=== PATIENT | male | born 1965 | race Caucasian/White ===

== ENCOUNTER 2021-07-27 19:33 | Emergency (ER) | payer OTHER ==
[2021-07-27 22:12] LABS: SARS-COV-2 RT PCR NEGATIVE (NEGATIVE)
--- NOTE | 2021-07-28 00:11 | ER ---
Nurse's Notes [facility] Name: Tony Keen Age: 56 yrs Sex: Male : 1965 Arrival Date: 07/27/2021 Time: 19:42 Bed 18 Private MD: Diagnosis: Acute bronchitis, unspecified Presentation: 07/27 20:54 Chief complaint: Patient states: I have chest congestion real bad, I've been coughing vc1 and my nose has been running. Coronavirus screen: Vaccine status: Patient reports receiving the 2nd dose of the covid vaccine. 1st 2 doses pfizer booster was moderna congestion, cough unrelated to allergies, shortness of breath, Client presents with at least one sign or symptom that may indicate coronavirus-19. Standard/surgical mask placed on the client. Ebola Screen: No symptoms or risks identified at this time. Initial Sepsis Screen: Does the patient meet any 2 criteria? Yes Does the patient have a suspected source of infection? No. Patient's initial sepsis screen is negative. Risk Assessment: Do you want to hurt yourself or someone else? Patient reports no desire to harm self or others. Onset of symptoms was July 23, 2021. 20:54 Method Of Arrival: Ambulatory vc1 20:54 Acuity: SETH 4 vc1 Triage Assessment: 20:57 General: Appears in no apparent distress. Behavior is calm, cooperative, appropriate vc1 for age. Pain: Denies pain. EENT: Reports nasal congestion nasal discharge. Cardiovascular: No deficits noted. Respiratory: Reports shortness of breath Airway is patent Respiratory effort is even, unlabored, Respiratory pattern is regular, symmetrical. Historical: - Allergies: 20:57 No Known Allergies; vc1 - PMHx: 20:57 Diabetes mellitus; Hypertensive disorder; vc1 - Immunization history:: Adult Immunizations up to date. - Social history:: Smoking status: Patient denies any tobacco usage or history of. Screenin:34 Abuse screen: Denies threats or abuse. Denies injuries from another. Nutritional kd3 screening: No deficits noted. Tuberculosis screening: No symptoms or risk factors identified. Fall Risk None identified. Assessment: 22:32 Reassessment: Patient and/or family updated on plan of care and expected duration. Pain kd3 level reassessed. Patient is alert, oriented x 3, equal unlabored respirations, skin warm/dry/pink. Respiratory: Airway is patent Respiratory effort is even, unlabored, Breath sounds are clear bilaterally. GI: No deficits noted. Patient currently denies diarrhea. Vital Signs: 20:54 BP 157 / 88; Pulse 78; Resp 16; Temp 98; Weight 99.79 kg; Height 5 ft. 6 in. (167.64 vc1 cm); Pain 0/10; 22:33 BP 161 / 94; Pulse 82; Resp 17; Temp 97.5; Pulse Ox 100% on R/A; kd3 07/28 00:22 BP 151 / 74; Pulse 82; Resp 17; Temp 98.2; Pulse Ox 100% ; kd3 07/27 20:54 Body Mass Index 35.51 (99.79 kg, 167.64 cm) vc1 ED Course: 07/27 19:42 Patient arrived in ED. wm 20:39 Edwin Hensley PA is PHCP. cp 20:39 Liban Moscoso MD is Attending Physician. cp 20:57 Triage completed. vc1 20:59 Arm band placed on left wrist. vc1 22:28 Huma Zheng, RN is Primary Nurse. kd3 22:34 Patient has correct armband on for positive identification. Bed in low position. Call kd3 light in reach. Side rails up X2. 23:22 COVID-19/FLU A+B (Document "Date of Onset" if Symptomatic) Sent. kd3 23:26 XRAY Chest Pa And Lat (2 Views) In Process Unspecified. EDMS 07/28 00:21 No provider procedures requiring assistance completed. Patient did not have IV access kd3 during this emergency room visit. Administered Medications: No medications were administered Outcome: 00:10 Discharge ordered by MD. cp 00:21 Discharged to home ambulatory. kd3 00:21 Condition: stable 00:21 Discharge instructions given to patient, Instructed on discharge instructions, follow up and referral plans. medication usage, Demonstrated understanding of instructions, follow-up care, medications, Prescriptions given X 3. 00:22 Patient left the ED. kd3 Signatures: Dispatcher [employer] EDMS Edwin Hensley PA PA cp Marsh, Wendy Huma Zheng RN RN kd3 Nidhi Leigh RN RN vc1
--- NOTE | 2021-07-28 00:11 | EDPHYS ---
Physician Documentation [facility] Name: Tony Keen Age: 56 yrs Sex: Male : 1965 Arrival Date: 07/27/2021 Time: 19:42 Bed 18 Private MD: ED Physician Liban Moscoso HPI: 07/27 22:55 This 56 yrs old Male presents to ER via Ambulatory with complaints of Chest Congestion, cp Cough. 22:55 The patient or guardian reports cough, that is intermittent. cp 22:55 Onset: The symptoms/episode began/occurred 4 day(s) ago. Associated signs and symptoms: cp Pertinent positives: rhinorrhea, chest congestion, Pertinent negatives: chest pain, fever, sore throat, vomiting. Severity of symptoms: in the emergency department the symptoms are unchanged despite home interventions. Historical: - Allergies: 20:57 No Known Allergies; vc1 - PMHx: 20:57 Diabetes mellitus; Hypertensive disorder; vc1 - Immunization history:: Adult Immunizations up to date. - Social history:: Smoking status: Patient denies any tobacco usage or history of. ROS: 23:00 Constitutional: Negative for body aches, chills, fever, poor PO intake. cp 23:00 Eyes: Negative for injury, pain, redness, and discharge. cp 23:00 ENT: Negative for drainage from ear(s), ear pain, sore throat, difficulty swallowing, difficulty handling secretions. 23:00 Neck: Negative for pain with movement, pain at rest, stiffness. 23:00 Cardiovascular: Negative for chest pain, edema, palpitations. 23:00 Respiratory: Positive for cough, "sounds productive", chest congestion, Negative for shortness of breath, wheezing. 23:00 Abdomen/GI: Negative for abdominal pain, nausea, vomiting, and diarrhea. 23:00 Neuro: Negative for altered mental status, headache, weakness. 23:00 All other systems are negative. Exam: 23:05 Constitutional: The patient appears in no acute distress, alert, awake, cp non-diaphoretic, non-toxic, well developed, well nourished. 23:05 Head/Face: Normocephalic, atraumatic. cp 23:05 Eyes: Periorbital structures: appear normal, Conjunctiva: normal, no exudate, no injection, Lids and lashes: appear normal, bilaterally. 23:05 ENT: External ear(s): are unremarkable, Ear canal(s): are normal, clear, TM's: bulging, is not appreciated, bilaterally, dullness, bilaterally, erythema, is not appreciated, bilaterally, Nose: is normal, Mouth: Lips: moist, Oral mucosa: pink and intact, moist, Posterior pharynx: Airway: no evidence of obstruction, patent, Tonsils: no enlargement, no erythema, no exudate, erythema, is not appreciated, exudate, is not appreciated. 23:05 Neck: ROM/movement: is normal, is supple, without pain, no range of motions limitations, no meningismus, no nuchal rigidity, Lymph nodes: no appreciated lymphadenopathy. 23:05 Chest/axilla: Inspection: normal. 23:05 Cardiovascular: Rate: normal, Rhythm: regular, Edema: is not appreciated, JVD: is not appreciated. 23:05 Respiratory: the patient does not display signs of respiratory distress, Respirations: normal, no use of accessory muscles, no retractions, labored breathing, is not present, Breath sounds: decreased breath sounds, are not appreciated, stridor, is not appreciated, + upper airway congestion. wheezing: is not appreciated. 23:05 Abdomen/GI: Exam negative for discomfort, distension, guarding, Inspection: abdomen appears normal. 23:05 Back: pain, is absent, ROM is normal. 23:05 Neuro: Orientation: to person, place \\T\\ time. Mentation: is normal, Motor: moves all fours, strength is normal, Sensation: is normal. Vital Signs: 20:54 BP 157 / 88; Pulse 78; Resp 16; Temp 98; Weight 99.79 kg; Height 5 ft. 6 in. (167.64 vc1 cm); Pain 0/10; 22:33 BP 161 / 94; Pulse 82; Resp 17; Temp 97.5; Pulse Ox 100% on R/A; kd3 07/28 00:22 BP 151 / 74; Pulse 82; Resp 17; Temp 98.2; Pulse Ox 100% ; kd3 07/27 20:54 Body Mass Index 35.51 (99.79 kg, 167.64 cm) vc1 MDM: 07/27 22:19 Patient medically screened. cp 23:00 Differential diagnosis: bronchitis, flu, pneumonia, COVID-19. cp 23:37 Test interpretation: by ED physician or midlevel provider: chest xray negative for cp infiltrates. 07/28 00:10 Data reviewed: vital signs, nurses notes, lab test result(s), radiologic studies, plain cp films. 00:10 Counseling: I had a detailed discussion with the patient and/or guardian regarding: the cp historical points, exam findings, and any diagnostic results supporting the discharge/admit diagnosis, lab results, radiology results, to return to the emergency department if symptoms worsen or persist or if there are any questions or concerns that arise at home. ED course: VSS. Patient appears non-toxic and no signs of respiratory distress. Will discharge to home for continued monitoring. 07/27 21:30 Order name: COVID-19/FLU A+B (Document "Date of Onset" if Symptomatic) bb 07/27 21:31 Order name: COVID-19/FLU A+B; Complete Time: 22:25 EDMS 07/27 22:49 Order name: XRAY Chest Pa And Lat (2 Views) cp Administered Medications: No medications were administered Disposition: 10:08 Co-signature as Attending Physician, Liban Moscoso MD I agree with the assessment and sp3 plan of care. Disposition Summary: 07/28/21 00:10 Discharge Ordered Location: Home cp Problem: new cp Symptoms: are unchanged cp Condition: Stable cp Diagnosis - Acute bronchitis, unspecified cp Followup: cp - With: Private Physician - When: 2 - 3 days - Reason: Worsening of condition Discharge Instructions: - Discharge Summary Sheet cp - Acute Bronchitis, Adult cp Forms: - Medication Reconciliation Form cp - Thank You Letter cp - Antibiotic Education cp - Prescription Opioid Use cp Prescriptions: - albuterol sulfate 90 mcg/actuation Inhalation HFA aerosol inhaler - inhale 1 puff by INHALATION route every 4-6 hours; 1 Inhaler; Refills: 0, cp Product Selection Permitted - Tessalon Perles 100 mg Oral Capsule - take 2 capsule by ORAL route every 8 hours As needed; 30 capsule; Refills: 0, cp Product Selection Permitted - Zithromax Z-Malcom 250 mg Oral Tablet - take 1 tablet by ORAL route as directed for 5 days Day 1 - take two (2) tablets cp one time. Day 2, 3, 4 , 5 take one (1) tablet once daily.; 6 tablet; Refills: 0, Product Selection Permitted Signatures: Dispatcher [employer] EDEdwin Lee PA PA cp Patel, Setul, MD MD sp3 Nidhi Leigh RN RN vc1
[2021-07-28 00:46] VITALS: O2SAT 100
[2021-07-28 00:48] VITALS: BP 151/74; TEMP 98.2
--- NOTE | 2021-07-28 08:40 | RAD REPORT ---
EXAM DESCRIPTION: RAD - Chest Pa And Lat (2 Views) - 07/27/2021 11:27 pm CLINICAL HISTORY: COUGH COMPARISON: None TECHNIQUE: Frontal and lateral views of the chest were obtained. FINDINGS: The lungs are clear. Heart size is normal and central vasculature is within normal limit s. No pleural effusion or pneumothorax seen. No acute bony finding noted. No aortic abnormality. IMPRESSION: No acute cardiopulmonary process.
== END 2021-07-28 00:22 | disposition home or self-care (01) ==
LOC: ER 19:33
DX: J20.9 Acute bronchitis, unspecified (principal); Z20.822 Contact with and (suspected) exposure to COVID-19; E11.9 Type 2 diabetes mellitus without complications; I10 Essential (primary) hypertension
CPT/HCPCS: 0240U; 71046; 99283